=== PATIENT | male | born 1965 | race African-American/Black ===

== ENCOUNTER 2017-06-04 21:07 | Emergency (ER) | payer SELFPAY | END 2017-06-04 21:33 | disposition left against medical advice (07) | LOC: E/R 21:33 | DX: Z53.21 Procedure and treatment not carried out due to patient leaving prior to being seen by health care provider (principal) ==

== ENCOUNTER 2017-09-22 15:37 | Observation (INO) | payer BC ==
[2017-09-22] MEDS: ASPIRIN 81 MG TAB PO (16:46)
[2017-09-22] MEDS: NITROGLYCERIN 2% 1 GM OINT PKT TD (16:47)
[2017-09-22 16:50] LABS: ADD MAN DIFF? NO
[2017-09-22 16:51] LABS: WHITE BLOOD COUNT 5.1 10^3/ul (4.8-10.8)
[2017-09-22 16:51] LABS: BASOPHILS % 0.6 % (0.0-2.0); EOSINOPHILS # 0.6 10^3/ul (0.0-0.5); EOSINOPHILS % 10.7 % (0.0-7.0); HEMATOCRIT 41.9 % (42.0-52.0); HEMOGLOBIN 14.3 g/dl (14.0-18.0); LYMPHOCYTES % 38.7 % (15.0-51.0); MEAN CORPUSCULAR HEMOGLOBIN 31.4 pg (29.0-33.0); MEAN CORPUSCULAR HGB CONC 34.1 g/dl (32.0-37.0); MEAN CORPUSCULAR VOLUME 92.1 fl (82.0-101.0); MEAN PLATELET VOLUME 9.1 fl (7.4-10.4); MONOCYTE # 0.5 10^3/ul (0.3-0.9); MONOCYTES % 10.4 % (0.0-11.0); NEUTROPHILS % 39.4 % (39.0-77.0); PLATELET COUNT 254 10^3/UL (140-415); RED BLOOD COUNT 4.55 10^6/ul (4.70-6.10); RED CELL DISTRIBUTION WIDTH 12.4 % (11.5-14.5)
[2017-09-22] MEDS ORDERED: NITROGLYCERIN (SL) 0.4 MG TAB SL ×2 (17:00→18:00)
[2017-09-22 17:08] LABS: ANION GAP 11 (8-16); BLOOD UREA NITROGEN 13 mg/dl (7-20); CALCIUM 9.5 mg/dl (8.4-10.2); CARBON DIOXIDE 28 mmol/L (21-31); CHLORIDE 105 mmol/L (97-110); CREATININE 1.83 mg/dl (0.61-1.24); GLUCOSE 87 mg/dl (70-220); POTASSIUM 4.3 mmol/L (3.5-5.1); SODIUM 140 mmol/L (135-144)
[2017-09-22 17:28] LABS: TROPONIN-I < 0.010 ng/ml (0.000-0.120)
[2017-09-22] MEDS ORDERED: MAGNESIUM HYDROXIDE 30ML CUP PO (18:00)
[2017-09-22] MEDS ORDERED: morphine 2 MG INJ IV (18:00)
[2017-09-22] MEDS ORDERED: NACL 0.9% 3 ML SYG IV (18:00)
[2017-09-22] MEDS ORDERED: ACETAMINOPHEN 325 MG TAB PO (18:00)
[2017-09-22] MEDS ORDERED: DOCUSATE SODIUM 100 MG CAP PO (18:00)
[2017-09-22] MEDS ORDERED: ONDANSETRON 4 MG INJ IV ×2 (18:00)
[2017-09-22] MEDS ORDERED: IBUPROFEN 600 MG TAB PO (18:00)
[2017-09-22 18:12] LABS: CREATINE KINASE 245 IU/L (23-200)
[2017-09-22 18:19] LABS: HEMOGLOBIN A1C 5.5 % (0-5.9)
[2017-09-22] MEDS ORDERED: HYDROCODONE/APAP (5/325) TAB PO (19:00)
[2017-09-22] MEDS: SOD CHLORIDE 0.9% 500 ML IV (19:28)
[2017-09-22] MEDS: BACLOFEN 10 MG TAB PO (20:52)
[2017-09-22] MEDS: ACETAMINOPHEN 325 MG TAB PO (22:18)
[2017-09-23 00:18] LABS: CREATINE KINASE 223 IU/L (23-200)
[2017-09-23 00:24] LABS: CK INDEX 0.2
[2017-09-23 00:28] LABS: CK-MB 0.49 ng/ml (0.0-2.4); TROPONIN-I < 0.010 ng/ml (0.000-0.120)
[2017-09-23 01:33] LABS: ADD UMIC NO; UR ASCORBIC ACID NEGATIVE (NEGATIVE); UR BILIRUBIN (Dip) NEGATIVE (NEGATIVE); UR BLOOD (Dip) NEGATIVE (NEGATIVE); UR CLARITY CLEAR (CLEAR); UR COLOR COLORLESS (YELLOW); UR GLUCOSE (Dip) NEGATIVE (NEGATIVE); UR KETONES (Dip) NEGATIVE (NEGATIVE); UR LEUKOCYTE ESTERASE (Dip) NEGATIVE Leu/ul (NEGATIVE); UR NITRITE (Dip) NEGATIVE (NEGATIVE); UR SPECIFIC GRAVITY (Dip) 1.004 (1.003-1.030); UR TOTAL PROTEIN (Dip) NEGATIVE (NEGATIVE); UR UROBILINOGEN (Dip) NEGATIVE (NEGATIVE)
[2017-09-23] MEDS: PANTOPRAZOLE (EC) 40 MG TAB PO (06:06)
[2017-09-23] MEDS: BACLOFEN 10 MG TAB PO (09:02)
[2017-09-23 09:10] LABS: ADD MAN DIFF? NO
[2017-09-23 09:14] LABS: WHITE BLOOD COUNT 4.3 10^3/ul (4.8-10.8)
[2017-09-23 09:14] LABS: BASOPHIL # 0.1 10^3/ul (0.0-0.1); BASOPHILS % 1.2 % (0.0-2.0); EOSINOPHILS # 0.7 10^3/ul (0.0-0.5); EOSINOPHILS % 16.4 % (0.0-7.0); HEMATOCRIT 42.5 % (42.0-52.0); HEMOGLOBIN 14.4 g/dl (14.0-18.0); LYMPHOCYTES # 1.5 10^3/ul (0.8-2.9); LYMPHOCYTES % 35.3 % (15.0-51.0); MEAN CORPUSCULAR HGB CONC 33.9 g/dl (32.0-37.0); MEAN CORPUSCULAR VOLUME 91.6 fl (82.0-101.0); MEAN PLATELET VOLUME 8.7 fl (7.4-10.4); MONOCYTE # 0.4 10^3/ul (0.3-0.9); MONOCYTES % 9.7 % (0.0-11.0); NEUTROPHIL # 1.6 10^3/ul (1.6-7.5); NEUTROPHILS % 37.2 % (39.0-77.0); PLATELET COUNT 236 10^3/UL (140-415); RED BLOOD COUNT 4.64 10^6/ul (4.70-6.10); RED CELL DISTRIBUTION WIDTH 12.3 % (11.5-14.5)
[2017-09-23 09:36] LABS: ANION GAP 9 (8-16); BLOOD UREA NITROGEN 10 mg/dl (7-20); CALCIUM 9.4 mg/dl (8.4-10.2); CARBON DIOXIDE 27 mmol/L (21-31); CHLORIDE 108 mmol/L (97-110); CHOL/HDL RATIO 4.2 RATIO; CHOLESTEROL 219 mg/dl (100-200); CREATININE 1.47 mg/dl (0.61-1.24); GLUCOSE 121 mg/dl (70-220); HDL CHOLESTEROL 52 mg/dl (28-71); LDL CHOLESTEROL,CALCULATED 152 mg/dl; MAGNESIUM 1.9 mg/dl (1.7-2.5); POTASSIUM 4.3 mmol/L (3.5-5.1); SODIUM 140 mmol/L (135-144); TRIGLYCERIDES 75 mg/dl (0-149)
[2017-09-23 09:43] LABS: CREATINE KINASE 221 IU/L (23-200)
[2017-09-23 09:54] LABS: CK INDEX 0.2
[2017-09-23 09:55] LABS: CK-MB 0.48 ng/ml (0.0-2.4); TROPONIN-I < 0.010 ng/ml (0.000-0.120)
== END 2017-09-23 13:30 | disposition home or self-care (01) ==
LOC: E/R 15:37 → MS4 17:33
DX: R07.9 Chest pain, unspecified (principal); N17.9 Acute kidney failure, unspecified; J45.909 Unspecified asthma, uncomplicated
CPT/HCPCS: 36415; 71045; 80048; 80061; 81003; 82550; 82553; 83036; 83735; 83874; 84443; 84484; 85025; 93005; 99285-25; G0378